=== PATIENT | female | born 1960 | race Caucasian/White ===

== ENCOUNTER 2021-04-09 10:46 | Outpatient (CLI) | payer BC ==
[~2021-04-09 10:46] MED LIST: SODIUM CHLORIDE 0.9% 50 ML IVPB ONE; SODIUM CHLORIDE 0.9% 500 ML 500 ML in EMPTY BAG 1 BAG IV PRN
[2021-04-09] MEDS ORDERED: CASIRIVIMAB (REGN10933) (EUA) 600 MG, IMDEVIMAB (REGN10987) (EUA) 600 MG in SODIUM CHLO... IVPB ONE (11:00)
[2021-04-09 11:11] VITALS: BP 166/81; PULSE 89; RESP 16
[2021-04-09 12:08] VITALS: TEMP 98.2
== END 2021-04-09 12:30 | disposition home or self-care (01) ==
LOC: PROCWHC3 10:46
PROVIDERS: ATTEND Family Medicine
DX: U07.1 COVID-19 (principal)
CPT/HCPCS: 96360; Q0243; M0243